=== PATIENT | female | born 1965 | race Caucasian/White ===

== ENCOUNTER 2016-08-26 11:44 | Inpatient (IN) ==
[2016-08-26 12:26] LABS: Bilirubin,Urine Small (Negative); Blood,Urine Negative (Negative); Clarity,Urine Cloudy (Clear); Color,Urine Yellow (Yellow); Glucose,Urine (UA) Normal (Normal); Ketones,Urine Trace mg/dL (Negative); Leukocyte Esterase,Urine Negative (Negative); Nitrite,Urine Negative (Negative); Protein,Urine Negative (Neg-Trace); Specific Gravity,Urine 1.027 (1.010-1.025); Urobilinogen,Urine Normal (Normal)
[2016-08-26 12:27] LABS: Bacteria,Urine Few per hpf (None-Few); Hyaline Casts,Urine None Seen per lpf (None-Few); Squamous Epithelial Cell,Urine Many per lpf (None-Few)
[2016-08-26 12:28] LABS: Basophils # 0.1 K/mcL (0.0-0.2); Basophils % 0.8 %; Eosinophils # 0.1 K/mcL (0.0-0.6); Eosinophils % 1.3 %; Hematocrit 43.5 % (35.3-44.9); Hemoglobin 14.2 g/dL (11.5-15.4); Immature Granulocytes % 0.4 % (0-4); Lymphocytes # 2.7 K/mcL (0.6-4.6); Lymphocytes % 24.5 %; Mean Corpuscular HGB Conc 32.6 g/dL (31.6-35.5); Mean Corpuscular Hemoglobin 28.5 pg (28.0-33.3); Mean Corpuscular Volume 87.2 fL (83.0-100.0); Monocytes # 0.8 K/mcL (0.0-1.3); Monocytes % 7.6 %; Neutrophils # 7.2 K/mcL (1.6-8.9); Platelet Count 375 K/mcL (140-400); Red Blood Count 4.99 M/mcL (3.82-4.97); Red Cell Distribution Width 12.9 % (11.5-14.5); Segmented Neutrophils % 65.4 %
[2016-08-26 12:30] LABS: Amphetamine Screen,Urine Negative ng/mL (Cutoff=1000); Barbiturate Screen,Urine Negative ng/mL (Cutoff=200); Benzodiazepines Screen,Urine Positive ng/mL (Cutoff=200); Cannabinoid Screen,Urine Negative ng/mL (Cutoff = 50); Cocaine Screen,Urine Negative ng/mL (Cutoff= 300); Opiate Screen,Urine Negative ng/mL (Cutoff=300); Phencyclidine Screen,Urine Negative ng/mL (Cutoff=25)
[2016-08-26 12:44] LABS: BUN/Creatinine Ratio 17 (6-26); Blood Urea Nitrogen 15 mg/dL (7-20); Calcium 10.7 mg/dL (8.6-10.8); Carbon Dioxide 22 mEq/L (19-29); Chloride 107 mEq/L (98-109); Glucose 96 mg/dL (70-99); Osmolality,Calculated 293 (280-300); Potassium 3.8 mEq/L (3.5-4.5); Sodium 141 mEq/L (136-145); eGFR For African Americans > 60 (> 60); eGFR For Non-African Americans > 60 (> 60)
[2016-08-26 12:46] LABS: Acetaminophen < 1.0 mcg/mL (10-30); Ethanol < 10 mg/dL (0-10); Salicylate < 5.0 mg/dL (15-30)
--- NOTE | 2016-08-26 13:46 | Emergency Department Note ---
Disposition Clinical Impression: Bipolar disorder Depression Qualifiers: Depression Type: unspecified Qualified Code(s): F32.9 - Major depressive disorder, single episode, unspecified Disposition: Admitted As Inpatient Condition: Good Referrals: NO,PCP [Primary Care Provider] - Forms: ED Satisfaction Letter Time of Disposition: 15:35 Psych HPI - General Chief Complaint: ED Psychiatric Symptoms Stated Complaint: Bipolar episode Time Seen by Provider: 08/26/16 13:28 Source: patient Mode of arrival: ambulatory Limitations: no limitations Nursing Notes Reviewed: Yes Vital Signs Reviewed: Yes - History of Present Illness HPI Narrative: 51-year-old female past medical history of bipolar disorder comes in for evaluation of poorly controlled depressive symptoms without thoughts of harming herself or others. She states that she is not able to work due to her severe symptoms. She denies auditory hallucinations, but her daughter believes that she has been having them and seems to be listening to someone else when she is trying to talk to her. She has remote history of suicide attempt with horse tranquilizers. Recently, the patient became disoriented and drove her car until it ran out of [facility] where police found her asleep. No recent illness or injury. Patient has had similar symptoms in the past that have required admission. Last psychiatric admission was about 8 years ago. Pt complaint: feels depressed - Related Data Home Medications Medication Instructions Recorded Confirmed Duloxetine HCl [Cymbalta] 60 mg PO BID 08/26/16 08/26/16 HYDROcodone/Acet 10/325 mg [[place] 1 tab PO Q6HR PRN 08/26/16 08/26/16 10-325 mg] [place] Carbonate 300 mg PO BID 08/26/16 08/26/16 Temazepam [Restoril] 15 - 30 mg PO HS PRN 08/26/16 08/26/16 Allergies Allergy/AdvReac Type Severity Reaction Status Date / Time Antihistamines - Alkylamine AdvReac See Verified 08/26/16 14:23 Comments All systems ED: reviewed and negative except as stated. Past Medical History - Past Medical History Attestation: Yes The following information was validated with the patient. Source: patient Medical history: Reports: no medical history Psychiatric history: Reports: anxiety, bipolar, depression, panic disorder - Social History Smoking Status: Never smoker Smokeless Tobacco Status: No Alcohol use: Reports: none Drug use: Reports: none Physical Exam - Head Head exam: atraumatic, normocephalic, normal inspection - Eye Eye exam: Present: normal appearance, PERRL, EOMI - ENT ENT exam: normal exam, normal oropharynx, mucous membranes moist - Neck Neck exam: Present: normal inspection, full ROM, trachea midline - Chest Chest inspection: Present: normal inspection, symmetric chest wall rise - Respiratory Respiratory exam: Clear to auscultation bilaterally without wheezes rales or rhonchi Cardiovascular Cardiovascular exam: Present: regular rate, normal rhythm, normal heart sounds - Abdominal Exam Abdominal exam: Present: soft, Non-Tender. Absent: tenderness, distention, guarding, rebound, rigidity - Extremities Exam Extremities exam: Present: normal inspection, full ROM - Expanded Lower Extremity Exam Hip/Pelvis exam: Present: normal inspection, full ROM - Back Exam Back exam: Present: normal inspection, full ROM. Absent: tenderness, CVA tenderness (R), CVA tenderness (L) - Neurological Exam Neurological exam: Present: alert, oriented X3, CN II-XII intact - Psychiatric Psychiatric exam: Withdrawn and tearful. - Skin Skin exam: Present: warm, dry, intact, normal color - General Limitations: no limitations General appearance: other Course - Reevaluation(s) Reevaluation #1: Patient accepted to psychiatry. Time: 15:35 Vital Signs Temperature 98.5 F 08/26/16 12:01 Pulse Rate 77 08/26/16 12:01 Respiratory Rate 16 08/26/16 12:01 Blood Pressure 120/84 08/26/16 12:01 O2 Sat by Pulse Oximetry 99 08/26/16 12:01 Temperature 98.5 F 08/26/16 12:01 Pulse Rate 77 08/26/16 12:01 Respiratory Rate 16 08/26/16 12:01 Blood Pressure 120/84 08/26/16 12:01 O2 Sat by Pulse Oximetry 99 08/26/16 12:01 Oxygen Delivery Oxygen Delivery Room Air Psych - Lab Data Result diagrams: 08/26/16 12:18 08/26/16 12:18 Lab Results 08/26/16 08/26/16 08/26/16 Range/Units 12:11 12:11 12:18 WBC 11.1 (4.3-11.1) K/mcL RBC 4.99 H (3.82-4.97) M/mcL Hgb 14.2 (11.5-15.4) g/dL Hct 43.5 (35.3-44.9) % MCV 87.2 (83.0-100.0) fL MCH 28.5 (28.0-33.3) pg MCHC 32.6 (31.6-35.5) g/dL RDW 12.9 (11.5-14.5) % Plt Count 375 (140-400) K/mcL MPV 9.0 L (9.4-12.4) fL Immature Gran % 0.4 (0-4) % Seg Neutrophils % 65.4 % Lymphocytes % 24.5 % Monocytes % 7.6 % Eosinophils % 1.3 % Basophils % 0.8 % Neutrophils # 7.2 (1.6-8.9) K/mcL Lymphocytes # 2.7 (0.6-4.6) K/mcL Monocytes # 0.8 (0.0-1.3) K/mcL Eosinophils # 0.1 (0.0-0.6) K/mcL Basophils # 0.1 (0.0-0.2) K/mcL Sodium (136-145) mEq/L Potassium (3.5-4.5) mEq/L Chloride (98-109) mEq/L Carbon Dioxide (19-29) mEq/L BUN (7-20) mg/dL Creatinine (0.57-1.11) mg/dL Est GFR ( Amer) (> 60) Est GFR (Non-Af Amer) (> 60) BUN/Creatinine Ratio (6-26) Glucose (70-99) mg/dL Calculated Osmolality (280-300) Calcium (8.6-10.8) mg/dL Urine Color Yellow (Yellow) Urine Clarity Cloudy A (Clear) Urine pH 6.0 (5.0-8.0) pH Units Ur Specific [place] 1.027 H (1.010-1.025) Urine Protein Negative (Neg-Trace) mg/dL Urine Glucose (UA) Normal (Normal) mg/dL Urine Ketones Trace H (Negative) mg/dL Urine Blood Negative (Negative) Urine Nitrite Negative (Negative) Urine Bilirubin Small H (Negative) Urine Urobilinogen Normal (Normal) mg/dL Ur Leukocyte Esterase Negative (Negative) Urine Microscopic RBC 5-15 H (0-3) per hpf Urine Microscopic WBC 5-15 H (0-3) per hpf Ur Squamous Epith Cells Many H (None-Few) per lpf Urine Bacteria Few (None-Few) per hpf Hyaline Casts None Seen (None-Few) per lpf Salicylates (15-30) mg/dL Urine Opiates Screen Negative (Kamxcd=741) ng/mL Acetaminophen (10-30) mcg/mL Ur Barbiturates Screen Negative (Nednix=601) ng/mL Ur Phencyclidine Scrn Negative (Cutoff=25) ng/mL Ur Amphetamines Screen Negative (Sapjbs=9984) ng/mL U Benzodiazepines Scrn Positive H (Jxfffq=278) ng/mL Urine Cocaine Screen Negative (Cutoff= 300) ng/mL U Marijuana (THC) Screen Negative (Cutoff = 50) ng/mL Ethyl Alcohol (0-10) mg/dL 08/26/16 Range/Units 12:18 WBC (4.3-11.1) K/mcL RBC (3.82-4.97) M/mcL Hgb (11.5-15.4) g/dL Hct (35.3-44.9) % MCV (83.0-100.0) fL MCH (28.0-33.3) pg MCHC (31.6-35.5) g/dL RDW (11.5-14.5) % Plt Count (140-400) K/mcL MPV (9.4-12.4) fL Immature Gran % (0-4) % Seg Neutrophils % % Lymphocytes % % Monocytes % % Eosinophils % % Basophils % % Neutrophils # (1.6-8.9) K/mcL Lymphocytes # (0.6-4.6) K/mcL Monocytes # (0.0-1.3) K/mcL Eosinophils # (0.0-0.6) K/mcL Basophils # (0.0-0.2) K/mcL Sodium 141 (136-145) mEq/L Potassium 3.8 (3.5-4.5) mEq/L Chloride 107 (98-109) mEq/L Carbon Dioxide 22 (19-29) mEq/L BUN 15 (7-20) mg/dL Creatinine 0.86 (0.57-1.11) mg/dL Est GFR ( Amer) > 60 (> 60) Est GFR (Non-Af Amer) > 60 (> 60) BUN/Creatinine Ratio 17 (6-26) Glucose 96 (70-99) mg/dL Calculated Osmolality 293 (280-300) Calcium 10.7 (8.6-10.8) mg/dL Urine Color (Yellow) Urine Clarity (Clear) Urine pH (5.0-8.0) pH Units Ur Specific [place] (1.010-1.025) Urine Protein (Neg-Trace) mg/dL Urine Glucose (UA) (Normal) mg/dL Urine Ketones (Negative) mg/dL Urine Blood (Negative) Urine Nitrite (Negative) Urine Bilirubin (Negative) Urine Urobilinogen (Normal) mg/dL Ur Leukocyte Esterase (Negative) Urine Microscopic RBC (0-3) per hpf Urine Microscopic WBC (0-3) per hpf Ur Squamous Epith Cells (None-Few) per lpf Urine Bacteria (None-Few) per hpf Hyaline Casts (None-Few) per lpf Salicylates < 5.0 L (15-30) mg/dL Urine Opiates Screen (Cwaggg=001) ng/mL Acetaminophen < 1.0 L (10-30) mcg/mL Ur Barbiturates Screen (Rgotas=893) ng/mL Ur Phencyclidine Scrn (Cutoff=25) ng/mL Ur Amphetamines Screen (Hijuum=2141) ng/mL U Benzodiazepines Scrn (Abgoaq=081) ng/mL Urine Cocaine Screen (Cutoff= 300) ng/mL U Marijuana (THC) Screen (Cutoff = 50) ng/mL Ethyl Alcohol < 10 (0-10) mg/dL Psychiatric Medical Clearance - Medical Clearance Checklist Medical History: No Social History Section defined Current Vitals: Last Vital Signs Temp 98.5 F 08/26/16 12:01 Pulse 77 08/26/16 12:01 Resp 16 08/26/16 12:01 BP 120/84 08/26/16 12:01 Pulse Ox 99 08/26/16 12:01 Psychiatric Lab Panel: Drug Levels and Toxicity 08/26/16 08/26/16 12:11 12:18 Urine Opiates Screen Negative Acetaminophen < 1.0 L Ur Barbiturates Screen Negative Ur Phencyclidine Scrn Negative Ur Amphetamines Screen Negative U Benzodiazepines Scrn Positive H Urine Cocaine Screen Negative U Marijuana (THC) Screen Negative Ethyl Alcohol < 10 Abnormal Labs: Abnormal lab results RBC 4.99 M/mcL (3.82-4.97) H 08/26/16 12:18 MPV 9.0 fL (9.4-12.4) L 08/26/16 12:18 Urine Clarity Cloudy (Clear) A 08/26/16 12:11 Ur Specific [place] 1.027 (1.010-1.025) H 08/26/16 12:11 Urine Ketones Trace mg/dL (Negative) H 08/26/16 12:11 Urine Bilirubin Small (Negative) H 08/26/16 12:11 Urine Microscopic RBC 5-15 per hpf (0-3) H 08/26/16 12:11 Urine Microscopic WBC 5-15 per hpf (0-3) H 08/26/16 12:11 Ur Squamous Epith Cells Many per lpf (None-Few) H 08/26/16 12:11 Salicylates < 5.0 mg/dL (15-30) L 08/26/16 12:18 Acetaminophen < 1.0 mcg/mL (10-30) L 08/26/16 12:18 U Benzodiazepines Scrn Positive ng/mL (Sebifj=196) H 08/26/16 12:11 Attestation Statement - Attestation Attestation: I personally interviewed and examined this patient and my medical decision- making was reviewed with the ED Resident Physician, Dr. Sawyer. I agree with the documented findings, disposition and treatment plan as described except to the extent set forth below. Patient is a 51-year-old white female who is brought by family today to the emergency department for psychiatric evaluation for worsening depressive symptoms with a history of bipolar disorder. Patient's admits compliance to medications, but states that over the past few days her depression has been gradually worsening. Patient denies actual thoughts of suicide or plan but has been having trouble functioning at her normal level at home. Patient was found asleep in her car after she had driven off into [place] parked the car and fell asleep in the wheel, found by police. Patient does take lithium for her bipolar disorder and I did order lithium level to be checked in the ED. Patient denies any physical complaints at this time, has flat affect but otherwise remainder of exam unremarkable. Patient has been hospitalized in the past for depression. Have obtained full complete psych lab evaluation and patient currently being assessed by Ia for depressive symptoms. Following Ia evaluation patient will be admitted for further psychiatric care. Patient cooperative and resting comfortably at this time.
[2016-08-26] MEDS ORDERED: Temazepam 15 MG CAPSULE PO PRN (15:52)
[2016-08-26] MEDS ORDERED: *HR* LORazepam 1 MG TABLET PO PRN (15:53)
[2016-08-26] MEDS ORDERED: Haloperidol Lactate 5 MG/ML VIAL IM PRN (15:53)
[2016-08-26] MEDS ORDERED: traZODone 50 MG TABLET PO PRN (15:53)
[2016-08-26] MEDS ORDERED: Mag Hydrox/Al Hydrox/Simeth 30 ML UDC PO PRN (15:53)
[2016-08-26] MEDS ORDERED: MOM Conc 10 ML UD.LIQ PO PRN (15:53)
[2016-08-26] MEDS ORDERED: *HR* LORazepam 2 MG/ML VIAL IM PRN (15:53)
[2016-08-26] MEDS ORDERED: Ibuprofen 400 MG TABLET PO PRN (15:53)
[2016-08-26] MEDS: Lithium Carbonate 300 MG CAPSULE PO SCH (21:10)
[2016-08-27] MEDS: Lithium Carbonate 300 MG CAPSULE PO SCH ×2 (09:50→21:37)
--- NOTE | 2016-08-27 11:26 | Psychiatry History & Physical ---
Date of Encounter: 08/27/16 Time of Encounter: 11:16 History of Present Illness Patient Stated Chief Complaint: suicidal ideation Medicare Admission Attestation: For traditional Medicare patients the provided hospital inpatient services are reasonable and necessary and in the case of services not specified as inpatient -only under 42 CFR 419.22 (n), that they are appropriately provided as inpatient services in accordance 42 CFR 412.3. For Critical Access Hospital the patient may reasonably be expected to be discharged or transferred to a hospital within 96 hours after admission to the Critical Access Hospital. Admitted From: Home Plans for Post Hospital Care: Home History of Present Illness: Ms. Mora is a 51 year old female who was admitted secondary to SI. Has a history of Bipolar illness and past overdose attempts. Multiple stressors including financial troubles and arguing with her . According to staff he does not believe in mental health and he is not supportive when she seeks treatment. Last night she exhibited symptoms of psychosis. She apparently leaned over her roommate while she was sleeping and then stripped down and walked around the room naked. Roommate had to sleep elsewhere to get some rest. Refused hs meds but then took prns at 330am. Also refused vital signs and observed to be checking the doors and pulling off her arm bands. Denied any substance abuse history but her tox screen is positive for benzos and she is not prescribed benzos. Admitted to taking Valium when asked. Vital signs have been stable. No current signs of withdrawal. Discussed Seroquel as an option as it is good for Bipolar depression. Believes she has taken low doses of it in the past with some benefit. Currently prescribed Cymbalta and [place]. Will need a Ch[place]ter level. Denies any medical problems other then issues with one of her feet. Endorses AH and looks to be experiencing a psychotic depressive/mixed episode. Past Med Surg Social Fam HX - Past Medical History Medical history: no medical history - Past Psychiatric History Psychiatric history: Reports: bipolar, depression, prior suicide attempt Past psychiatric history details: past overdose attempts, history of psychosis - Social History Smoking Status: Never smoker Smokeless Tobacco Status: No Alcohol use: none Drug use: none Medications & Allergies Duloxetine HCl [Cymbalta] 60 mg PO BID 08/26/16 [History] HYDROcodone/Acet 10/325 mg [[place] 10-325 mg] 1 tab PO Q6HR PRN 05/13/17 [History ] [place] Carbonate 300 mg PO BID 08/26/16 [History] Temazepam [Restoril] 15 - 30 mg PO HS PRN 08/26/16 [History] Allergies Antihistamines - Alkylamine Adverse Reaction (Verified 08/26/16 14:23) See Comments Patient experiences "manic episodes" if she takens antihistamines- Review of Systems Constitutional: Denies: fever, chills, weakness, weight change Eyes: Denies: eye pain, vision change Ears, Nose, Throat: Denies: ear pain, throat pain, dental pain, hearing loss, congestion Cardiovascular: Denies: chest pain, palpitations, dyspnea on exertion Respiratory: Denies: cough, dyspnea, wheezes Gastrointestinal: Denies: abdominal pain, nausea, vomiting, diarrhea, constipation Genitourinary male: Denies: urgency, dysuria, frequency, genital lesions Genitourinary female: Denies: urgency, dysuria, frequency, abnormal menses, dyspareunia Musculoskeletal: Reports: back pain, myalgia. Denies: joint swelling, joint pain Integumentary: Denies: rash, lesions, pruritus Neurological: Denies: headache, weakness, numbness, memory loss Endocrine: Denies: fatigue, heat or cold intolerance Hematologic/Lymphatic: Denies: easy bruising, lymphadenopathy Allergic/Immunologic: Denies: urticaria, itchy eyes Mental Status Exam Patient orientation: Yes Person, Yes Time, Yes Place Level of alertness: Alert Patient appearance: Appropriate Behavior: anxious, restless Psychomotor activity: Normal Eye contact: Minimal Contact Mood description: Depressed Affect description: congruent with mood Speech pattern: Normal rate, Normal rhythm, Normal tone Speech volume: Normal Thought process: Thought Blocking Thought content: Yes Suicidal ideation, No Homicidal ideation, Yes Overt delusions Perceptual disturbances: Yes Auditory hallucinations Attention span: Capable of Focused Attention Memory description: Grossly Intact Patient reliability: Questionable Historian Intelligence estimate: Average Judgment: Limited Insight: Partial Exam - HEENT Head exam IM: Present: atraumatic Eye exam IM: Present: EOMI ENT exam IM: Present: mucous membranes moist - Neurological Neurological exam IM: Present: alert, oriented X3 - Respiratory Respiratory exam IM: Present: CTAB - GI/Abdominal GI/Abdominal exam IM: Present: normal bowel sounds - Extremities Extremities exam IM: Present: full ROM - Skin Skin exam IM: Present: normal color Results - Vital Signs Vital signs: Temp Pulse Resp BP Pulse Ox 98.6 F 91 20 118/87 98 08/27/16 09:00 08/27/16 09:00 08/27/16 09:00 08/27/16 09:00 08/26/16 15:40 - Labs Labs: Laboratory Last Values WBC 11.1 K/mcL (4.3-11.1) 08/26/16 12:18 RBC 4.99 M/mcL (3.82-4.97) H 08/26/16 12:18 Hgb 14.2 g/dL (11.5-15.4) 08/26/16 12:18 Hct 43.5 % (35.3-44.9) 08/26/16 12:18 MCV 87.2 fL (83.0-100.0) 08/26/16 12:18 MCH 28.5 pg (28.0-33.3) 08/26/16 12:18 MCHC 32.6 g/dL (31.6-35.5) 08/26/16 12:18 RDW 12.9 % (11.5-14.5) 08/26/16 12:18 Plt Count 375 K/mcL (140-400) 08/26/16 12:18 MPV 9.0 fL (9.4-12.4) L 08/26/16 12:18 Immature Gran % 0.4 % (0-4) 08/26/16 12:18 Seg Neutrophils % 65.4 % 08/26/16 12:18 Lymphocytes % 24.5 % 08/26/16 12:18 Monocytes % 7.6 % 08/26/16 12:18 Eosinophils % 1.3 % 08/26/16 12:18 Basophils % 0.8 % 08/26/16 12:18 Neutrophils # 7.2 K/mcL (1.6-8.9) 08/26/16 12:18 Lymphocytes # 2.7 K/mcL (0.6-4.6) 08/26/16 12:18 Monocytes # 0.8 K/mcL (0.0-1.3) 08/26/16 12:18 Eosinophils # 0.1 K/mcL (0.0-0.6) 08/26/16 12:18 Basophils # 0.1 K/mcL (0.0-0.2) 08/26/16 12:18 Sodium 141 mEq/L (136-145) 08/26/16 12:18 Potassium 3.8 mEq/L (3.5-4.5) 08/26/16 12:18 Chloride 107 mEq/L (98-109) 08/26/16 12:18 Carbon Dioxide 22 mEq/L (19-29) 08/26/16 12:18 BUN 15 mg/dL (7-20) 08/26/16 12:18 Creatinine 0.86 mg/dL (0.57-1.11) 08/26/16 12:18 Est GFR ( Amer) > 60 (> 60) 08/26/16 12:18 Est GFR (Non-Af Amer) > 60 (> 60) 08/26/16 12:18 BUN/Creatinine Ratio 17 (6-26) 08/26/16 12:18 Glucose 96 mg/dL (70-99) 08/26/16 12:18 Calculated Osmolality 293 (280-300) 08/26/16 12:18 Calcium 10.7 mg/dL (8.6-10.8) 08/26/16 12:18 Urine Color Yellow (Yellow) 08/26/16 12:11 Urine Clarity Cloudy (Clear) A 08/26/16 12:11 Urine pH 6.0 pH Units (5.0-8.0) 08/26/16 12:11 Ur Specific [place] 1.027 (1.010-1.025) H 08/26/16 12:11 Urine Protein Negative mg/dL (Neg-Trace) 08/26/16 12:11 Urine Glucose (UA) Normal mg/dL (Normal) 08/26/16 12:11 Urine Ketones Trace mg/dL (Negative) H 08/26/16 12:11 Urine Blood Negative (Negative) 08/26/16 12:11 Urine Nitrite Negative (Negative) 08/26/16 12:11 Urine Bilirubin Small (Negative) H 08/26/16 12:11 Urine Urobilinogen Normal mg/dL (Normal) 08/26/16 12:11 Ur Leukocyte Esterase Negative (Negative) 08/26/16 12:11 Urine Microscopic RBC 5-15 per hpf (0-3) H 08/26/16 12:11 Urine Microscopic WBC 5-15 per hpf (0-3) H 08/26/16 12:11 Ur Squamous Epith Cells Many per lpf (None-Few) H 08/26/16 12:11 Urine Bacteria Few per hpf (None-Few) 08/26/16 12:11 Hyaline Casts None Seen per lpf (None-Few) 08/26/16 12:11 Salicylates < 5.0 mg/dL (15-30) L 08/26/16 12:18 Urine Opiates Screen Negative ng/mL (Echjuq=095) 08/26/16 12:11 Acetaminophen < 1.0 mcg/mL (10-30) L 08/26/16 12:18 Ur Barbiturates Screen Negative ng/mL (Fovbqt=446) 08/26/16 12:11 Ur Phencyclidine Scrn Negative ng/mL (Cutoff=25) 08/26/16 12:11 Ur Amphetamines Screen Negative ng/mL (Ntpxqd=8566) 08/26/16 12:11 U Benzodiazepines Scrn Positive ng/mL (Vkmvww=184) H 08/26/16 12:11 [place] 0.4 mEq/L (0.6-1.2) L 08/26/16 12:18 Urine Cocaine Screen Negative ng/mL (Cutoff= 300) 08/26/16 12:11 U Marijuana (THC) Screen Negative ng/mL (Cutoff = 50) 08/26/16 12:11 Ethyl Alcohol < 10 mg/dL (0-10) 08/26/16 12:18 Assessment and Plan (1) Bipolar disorder Current visit: Yes Status: Acute Plan: Admit inpatient for safety and stabilization, Close observation, Suicide Precautions per unit protocol, Encourage participation in unit milieu, Group Therapy, Monitor sleep, Monitor appetite, Secure weapons Risks, benefits, side effects, alternatives discussed w/pt: Yes Patient agreeable to treatment : Yes Plans for Post Hospital Care: Home Estimated Length of Stay (Days): 4 Qualifiers: Active/Remission status: currently active Current bipolar episode type: depressed Current episode severity: severe Psychotic features: with psychotic features Qualified Code(s): F31.5 - Bipolar disorder, current episode depressed, severe, with psychotic features
[2016-08-27] MEDS ORDERED: Temazepam 15 MG CAPSULE PO PRN (12:16)
[2016-08-27] MEDS: *HR* HYDROcodone/Acet 10/325 mg TABLET PO PRN (17:02)
[2016-08-28] MEDS: Lithium Carbonate 300 MG CAPSULE PO SCH ×2 (09:16→21:23)
[2016-08-28] MEDS: *HR* HYDROcodone/Acet 10/325 mg TABLET PO PRN ×2 (14:38→21:23)
--- NOTE | 2016-08-28 14:38 | Psychiatry Progress Note ---
Date of Encounter: 08/28/16 Time of Encounter: 14:35 Subjective Interval history: Patient is seen for follow-up. Notes medication reviewed. Patient reports she is sleeping better with Seroquel, she reports auditory hallucinations and denies any suicidal ideation. She is guarded and suspicious. she knows her medications. She reports having attendance problems at work because of physical and mental problems. Objective: Exam Patient orientation: Yes Person, Yes Time, Yes Place Level of alertness: Alert Patient appearance: Appropriate, Well Groomed Behavior: calm, cooperative Psychomotor activity: Normal Eye contact: Fleeting Contact Mood description: Anxious, Labile Affect description: congruent with mood, labile, anxious Speech pattern: Normal rate, Normal rhythm, Normal tone Speech volume: Normal Thought process: Linear, Goal Oriented Thought content: No Suicidal ideation, No Homicidal ideation, No Overt delusions Perceptual disturbances: Yes Auditory hallucinations, No Visual hallucinations Judgment: Fair Insight: Partial Results - Vital Signs Vital Signs: Temp Pulse Resp BP Pulse Ox 98.0 F 107 14 114/76 98 08/28/16 09:00 08/28/16 09:00 08/28/16 09:00 08/28/16 09:00 08/26/16 15:40 Assessment and Plan (1) Bipolar disorder Current visit: Yes Status: Acute Plan: Continue hospitalization, Close observation, Suicide Precautions per unit protocol, Encourage participation in unit milieu, Group Therapy, Monitor sleep, Monitor appetite Risks, benefits, side effects, alternatives discussed w/pt: Yes Patient agreeable to treatment: Yes Qualifiers: Active/Remission status: currently active Current bipolar episode type: depressed Current episode severity: severe Psychotic features: with psychotic features Qualified Code(s): F31.5 - Bipolar disorder, current episode depressed, severe, with psychotic features Consult Discharge Plan - Plan Referrals: NO,PCP [Primary Care Provider] -
[2016-08-29] MEDS: Lithium Carbonate 300 MG CAPSULE PO SCH ×2 (08:56→20:32)
[2016-08-29] MEDS: *HR* HYDROcodone/Acet 10/325 mg TABLET PO PRN ×2 (10:42→20:32)
--- NOTE | 2016-08-29 15:28 | Psychiatry Progress Note ---
Date of Encounter: 08/29/16 Time of Encounter: 15:00 Subjective Interval history: Patient is seen for follow-up. She reports having initial insomnia. She denies any hallucination or suicidal ideation and previous medications are working. She is slightly guarded but cooperative. She is looking forward to go back to work. I reviewed medications with her and she is compliant. Discharge planning and follow-up are ongoing. Objective: Exam Patient orientation: Yes Person, Yes Time, Yes Place Level of alertness: Alert Patient appearance: Appropriate, Well Groomed Behavior: calm, cooperative, guarded Psychomotor activity: Normal Eye contact: Maintains Eye Contact Mood description: Euthymic/stable Affect description: congruent with mood, constricted Speech pattern: Normal rate, Normal rhythm, Normal tone Speech volume: Soft/Quiet Thought process: Linear, Goal Oriented Thought content: No Suicidal ideation, No Homicidal ideation, No Overt delusions Perceptual disturbances: No Auditory hallucinations, No Visual hallucinations Judgment: Fair Insight: Partial Results - Vital Signs Vital Signs: Temp Pulse Resp BP Pulse Ox 99.2 F 91 16 119/81 98 08/29/16 09:00 08/29/16 09:00 08/29/16 09:00 08/29/16 09:00 08/26/16 15:40 Assessment and Plan (1) Bipolar disorder Current visit: Yes Status: Acute Plan: Continue hospitalization, Close observation, Suicide Precautions per unit protocol, Encourage participation in unit milieu, Group Therapy, Monitor sleep, Monitor appetite Risks, benefits, side effects, alternatives discussed w/pt: Yes Patient agreeable to treatment: Yes Qualifiers: Active/Remission status: currently active Current bipolar episode type: depressed Current episode severity: severe Psychotic features: with psychotic features Qualified Code(s): F31.5 - Bipolar disorder, current episode depressed, severe, with psychotic features Consult Discharge Plan - Plan Referrals: Krystle Shea [Non-Partnered Physician] - 09/25/16 3:30 pm (The above appointment is with Krystle Shea, psychiatric provider.)
[2016-08-30 08:50] VITALS: BP 115/72
[2016-08-30] MEDS: Lithium Carbonate 300 MG CAPSULE PO SCH (09:20)
[2016-08-30] MEDS: *HR* HYDROcodone/Acet 10/325 mg TABLET PO PRN (10:40)
--- NOTE | 2016-08-30 14:53 | Discharge Summary ---
Date of Encounter: 08/30/16 Time of Encounter: 14:50 Diagnosis - Discharge Diagnosis (1) Bipolar disorder Status: Acute Qualifiers: Active/Remission status: currently active Current bipolar episode type: depressed Current episode severity: severe Psychotic features: with psychotic features Qualified Code(s): F31.5 - Bipolar disorder, current episode depressed, severe, with psychotic features Medications - Discharge Medications Prescriptions: Quetiapine Fumarate [Seroquel] 100 mg PO HS #30 tablet Duloxetine HCl [Cymbalta] 60 mg PO BID 08/26/16 [History] HYDROcodone/Acet 10/325 mg [[place] 10-325 mg] 1 tab PO Q6HR PRN 08/26/16 [History ] [place] Carbonate 300 mg PO BID 08/26/16 [History] Quetiapine Fumarate [Seroquel] 100 mg PO HS #30 tablet 08/30/16 [Rx] Allergies Antihistamines - Alkylamine Adverse Reaction (Verified 08/26/16 14:23) See Comments Patient experiences "manic episodes" if she takens antihistamines- Provider Date of admission: 08/26/16 15:39 Primary care physician: PCP NO Discharging clinician: Luis Wheeler Assessment and Plan - Patient/Caregiver Discharge Instructions Activity: resume usual activities as tolerated Diet: regular diet - Follow up Plan Follow up with: Krystle Shea [Non-Partnered Physician] - 09/25/16 3:30 pm (The above appointment is with Krystle Shea, psychiatric provider. This is Krystle's first available appointment. Office staff will contact you if a cancellation occurs in the schedule that would allow you to be seen sooner.) Functional capacity at discharge: independent ambulation Overall status at discharge: Stable Disposition: Home, Self-Care Hospital Course Hospital course: Ms. Mora is a 51 year old female admitted bipolar disorder was hallucinations and suicidal ideation. For details admission please see H&P On the units patient was started on her medication with one change temazepam was discontinued and she was given Seroquel for sleep. Patient was reported to have side effects from temazepam including confusion. Patient was seclusive to her room most of the time and minimally participated in activities. She was compliant with medication and did not display any delusional or psychotic behavior. [employer] completed discharge plans and disgusted with the patient and her family. Prior to discharge patient was medically stable and nonpsychotic or suicidal and looking forward to go back to work. - Time Spent with Patient Total time spent providing and/or coordinating discharge services: Less than 30 minutes Quality - Multiple Antipsychotics Patient discharged on 2 or more antipsychotic medications: No Procedures - Procedures Procedures: Medication Management, Crisis Stabilization, Supportive Therapy, Group Therapy, Psychoeducational Therapy Mental Status Exam - Mental Status Exam Patient orientation: Yes Person, Yes Time, Yes Place Level of alertness: Alert Patient appearance: Appropriate, Well Groomed Behavior: calm, cooperative, guarded Psychomotor activity: Slowed Eye contact: Maintains Eye Contact Mood description: Euthymic/stable Affect description: congruent with mood, full range Speech pattern: Normal rate, Normal rhythm, Normal tone Speech Volume: Normal Thought process: Linear, Goal Oriented Thought Content: No Suicidal ideation, No Homicidal ideation, No Overt delusions Perceptual Disturbances: No Auditory hallucinations, No Visual hallucinations Judgment: Limited Insight: Partial
== END 2016-08-30 17:05 | disposition home or self-care (01) | DRG 885 ==
LOC: EMEROO 11:44 → 1ANU 15:39 → SUATTDRO 15:39 → 1ANU 15:59
PROVIDERS: ADMIT Psychiatry & Neurology Psychiatry; ATTEND Psychiatry & Neurology Psychiatry